=== PATIENT | male | born 1950 | race Asian ===

== ENCOUNTER 2017-12-18 16:01 | Observation (INO) | payer MEDICARE, OTHER, MEDICAID ==
[2017-12-18 16:59] LABS: ADD MAN DIFF? NO
[2017-12-18 17:00] LABS: BASOPHILS % 0.5 % (0.0-2.0); EOSINOPHILS # 0.5 10^3/ul (0.0-0.5); HEMATOCRIT 39.5 % (42.0-52.0); HEMOGLOBIN 13.4 g/dl (14.0-18.0); LYMPHOCYTES # 1.6 10^3/ul (0.8-2.9); LYMPHOCYTES % 21.6 % (15.0-51.0); MEAN CORPUSCULAR HGB CONC 33.9 g/dl (32.0-37.0); MEAN CORPUSCULAR VOLUME 88.4 fl (82.0-101.0); MEAN PLATELET VOLUME 10.3 fl (7.4-10.4); MONOCYTE # 0.6 10^3/ul (0.3-0.9); MONOCYTES % 8.5 % (0.0-11.0); NEUTROPHIL # 4.7 10^3/ul (1.6-7.5); PLATELET COUNT 193 10^3/UL (140-415); RED BLOOD COUNT 4.47 10^6/ul (4.70-6.10); RED CELL DISTRIBUTION WIDTH 12.8 % (11.5-14.5)
[2017-12-18 17:00] LABS: WHITE BLOOD COUNT 7.5 10^3/ul (4.8-10.8)
[2017-12-18 17:08] LABS: LACTIC ACID 6.2 mmol/L (0.5-2.0)
[2017-12-18] MEDS: SOD CHLORIDE 0.9% 1,000 ML IV ×2 (17:17→17:59)
[2017-12-18] MEDS: ONDANSETRON 4 MG INJ IV (17:17)
[2017-12-18 17:33] LABS: ALANINE AMINOTRANSFERASE 27 IU/L (13-69); ALBUMIN 4.4 g/dl (3.3-4.9); ALBUMIN/GLOBULIN RATIO 1.33; ALKALINE PHOSPHATASE 75 IU/L (42-121); ANION GAP 20 (8-16); ASPARTATE AMINO TRANSFERASE 27 IU/L (15-46); BILIRUBIN,INDIRECT 0.2 mg/dl (0-1.1); BILIRUBIN,TOTAL 0.2 mg/dl (0.2-1.3); BLOOD UREA NITROGEN 13 mg/dl (7-20); CALCIUM 9.5 mg/dl (8.4-10.2); CARBON DIOXIDE 21 mmol/L (21-31); CHLORIDE 95 mmol/L (97-110); CREATININE 0.79 mg/dl (0.61-1.24); GLUCOSE 167 mg/dl (70-220); LIPASE 38 U/L (23-300); POTASSIUM 4.3 mmol/L (3.5-5.1); SODIUM 132 mmol/L (135-144); TOTAL PROTEIN 7.7 g/dl (6.1-8.1)
[2017-12-18 17:48] LABS: TROPONIN-I < 0.012 ng/ml (0.00-0.12)
[2017-12-18 18:20] LABS: ADD UMIC YES; UR ASCORBIC ACID NEGATIVE (NEGATIVE); UR BILIRUBIN (Dip) NEGATIVE (NEGATIVE); UR BLOOD (Dip) NEGATIVE (NEGATIVE); UR CLARITY CLEAR (CLEAR); UR COLOR YELLOW (YELLOW); UR GLUCOSE (Dip) 3+ mg/dL (NEGATIVE); UR KETONES (Dip) TRACE mg/dL (NEGATIVE); UR LEUKOCYTE ESTERASE (Dip) NEGATIVE Leu/ul (NEGATIVE); UR NITRITE (Dip) NEGATIVE (NEGATIVE); UR RBC 0 /HPF (0-5); UR SPECIFIC GRAVITY (Dip) 1.009 (1.003-1.030); UR TOTAL PROTEIN (Dip) 2+ mg/dl (NEGATIVE); UR UROBILINOGEN (Dip) NEGATIVE (NEGATIVE); UR WBC 0 /HPF (0-5)
[2017-12-18] MEDS ORDERED: ONDANSETRON 4 MG INJ IV (22:30)
[2017-12-18] MEDS ORDERED: ACETAMINOPHEN 325 MG TAB PO (22:30)
[2017-12-18] MEDS: RISPERIDONE 1 MG TAB PO (23:09)
[2017-12-18] MEDS: BENZTROPINE 1 MG TAB PO (23:09)
[2017-12-19] MEDS ORDERED: GLUCOSE GEL 15 GRAM TUBE BUCCAL (00:30)
[2017-12-19] MEDS ORDERED: GLUCAGON 1 MG INJ IM (00:30)
[2017-12-19] MEDS ORDERED: GLUCOSE GEL 15 GRAM TUBE PO ×2 (00:30)
[2017-12-19] MEDS ORDERED: DEXTROSE 50% 50 ML SYRINGE IV ×2 (00:30)
[2017-12-19 02:10] LABS: AADO2 Arterial 36.3 mmHg (7.0-24.0); Allen Test ACCEPTAB; Arterial Base Excess 2.4 mmol/L (-3.0-3); Arterial Blood Gas Oxygen Sat 97.3 mmHG (95.0-98.0); Arterial COHb 0.1 % (0.0-3.0); Arterial Fraction of Oxyhgb 96.9 % (93.0-99.0); Arterial HCO3 28.1 mmol/L (22.0-26.0); Arterial MetHb 0.3 % (0.0-1.5); Arterial Total Hemglobin 13.7 g/dl (12.0-18.0); Arterial pCO2 47.3 mmhg (35-45); MODE NASAL CANNULA; Site Right Radial
[2017-12-19 03:01] LABS: LACTIC ACID 2.3 mmol/L (0.5-2.0)
[2017-12-19 06:08] LABS: ADD MAN DIFF? NO
[2017-12-19 06:15] LABS: WHITE BLOOD COUNT 6.6 10^3/ul (4.8-10.8)
[2017-12-19 06:15] LABS: BASOPHILS % 0.3 % (0.0-2.0); EOSINOPHILS # 0.3 10^3/ul (0.0-0.5); EOSINOPHILS % 4.1 % (0.0-7.0); HEMATOCRIT 36.9 % (42.0-52.0); HEMOGLOBIN 12.5 g/dl (14.0-18.0); LYMPHOCYTES # 1.4 10^3/ul (0.8-2.9); LYMPHOCYTES % 21.9 % (15.0-51.0); MEAN CORPUSCULAR HEMOGLOBIN 29.6 pg (29.0-33.0); MEAN CORPUSCULAR HGB CONC 33.9 g/dl (32.0-37.0); MEAN CORPUSCULAR VOLUME 87.2 fl (82.0-101.0); MEAN PLATELET VOLUME 9.2 fl (7.4-10.4); MONOCYTE # 0.6 10^3/ul (0.3-0.9); MONOCYTES % 8.8 % (0.0-11.0); NEUTROPHIL # 4.3 10^3/ul (1.6-7.5); NEUTROPHILS % 64.6 % (39.0-77.0); PLATELET COUNT 197 10^3/UL (140-415); RED BLOOD COUNT 4.23 10^6/ul (4.70-6.10); RED CELL DISTRIBUTION WIDTH 12.5 % (11.5-14.5)
[2017-12-19 06:49] LABS: ALANINE AMINOTRANSFERASE 28 IU/L (13-69); ALBUMIN 3.7 g/dl (3.3-4.9); ALBUMIN/GLOBULIN RATIO 1.12; ALKALINE PHOSPHATASE 58 IU/L (42-121); ANION GAP 12 (8-16); ASPARTATE AMINO TRANSFERASE 18 IU/L (15-46); BILIRUBIN,INDIRECT 0.3 mg/dl (0-1.1); BILIRUBIN,TOTAL 0.3 mg/dl (0.2-1.3); BLOOD UREA NITROGEN 9 mg/dl (7-20); CALCIUM 9.2 mg/dl (8.4-10.2); CARBON DIOXIDE 29 mmol/L (21-31); CHLORIDE 101 mmol/L (97-110); CREATININE 0.74 mg/dl (0.61-1.24); GLUCOSE 160 mg/dl (70-220); POTASSIUM 3.5 mmol/L (3.5-5.1); SODIUM 138 mmol/L (135-144)
[2017-12-19 06:49] LABS: LACTIC ACID 1.2 mmol/L (0.5-2.0)
[2017-12-19 07:03] LABS: TROPONIN-I < 0.012 ng/ml (0.00-0.12)
[2017-12-19 07:35] LABS: HEMOGLOBIN A1C 7.7 % (0-5.9)
[2017-12-19] MEDS: BENAZEPRIL 40 MG TAB PO (08:24)
[2017-12-19] MEDS: AMLODIPINE 10 MG TAB PO (08:24)
[2017-12-19] MEDS: LORATADINE 10 MG TAB PO (08:25)
[2017-12-19] MEDS: BENZTROPINE 1 MG TAB PO ×3 (08:25→22:33)
[2017-12-19] MEDS: METOPROLOL 50 MG TAB PO ×2 (08:25→21:29)
[2017-12-19] MEDS: INSULIN ASPART [NOVOLOG] 3 ML PEN SC ×4 (08:27→21:00)
[2017-12-19] MEDS: POTASSIUM CHLORIDE 10 MEQ in SOD CHLORIDE 0.9% 1,000 ML IV ×3 (10:27→20:06)
[2017-12-19] MEDS: RISPERIDONE 2 MG TAB PO ×2 (10:27→21:29)
[2017-12-19] MEDS: metFORMIN 500 MG TAB PO (17:12)
[2017-12-19] MEDS ORDERED: LORAZEPAM 2 MG INJ IV (18:30)
[2017-12-19] MEDS ORDERED: ZOLPIDEM 5 MG TAB PO (18:30)
[2017-12-20] MEDS: POTASSIUM CHLORIDE 10 MEQ in SOD CHLORIDE 0.9% 1,000 ML IV ×2 (03:39→05:29)
[2017-12-20] MEDS: RISPERIDONE 2 MG TAB PO (08:07)
[2017-12-20] MEDS: LORATADINE 10 MG TAB PO (08:07)
[2017-12-20] MEDS: METOPROLOL 50 MG TAB PO (08:08)
[2017-12-20] MEDS: BENZTROPINE 1 MG TAB PO ×2 (08:08→11:52)
[2017-12-20] MEDS: BENAZEPRIL 40 MG TAB PO (08:08)
[2017-12-20] MEDS: metFORMIN 500 MG TAB PO ×2 (08:08→16:41)
[2017-12-20] MEDS: AMLODIPINE 10 MG TAB PO (08:08)
[2017-12-20] MEDS: ENOXAPARIN 40 MG/0.4 ML SYG SC (08:37)
[2017-12-20] MEDS: INSULIN ASPART [NOVOLOG] 3 ML PEN SC ×3 (08:37→16:41)
== END 2017-12-20 20:20 | disposition home or self-care (01) ==
LOC: MS2 12-19 04:10 → E/R 16:01 → MS2 22:15
DX: E86.0 Dehydration (principal); R42 Dizziness and giddiness; E78.00 Pure hypercholesterolemia, unspecified; F20.9 Schizophrenia, unspecified
CPT/HCPCS: 36415; 36600; 70450; 71045; 80053; 81001; 82803; 82962; 83036; 83605; 83690; 84484; 85025; 87400; 93005; 93306; 93880; 96374; 99285-25